=== PATIENT | male | born 1955 | race Caucasian/White ===

== ENCOUNTER 2017-04-13 16:16 | Emergency (ER) | payer BC ==
[2017-04-13 17:40] VITALS: BP 151/88
[2017-04-13] MEDS ORDERED: Bacitracin Oint 1 GM U/D Packet ONE (18:50)
--- NOTE | 2017-04-13 18:53 | EDM.PDOC ---
ED HPI GENERAL MEDICAL PROBLEM - General Chief Complaint: Laceration Stated Complaint: L THUMB LACERATION Time Seen by Provider: 04/13/17 17:59 Source of Information: Reports: Patient History Limitations: Reports: No Limitations - History of Present Illness INITIAL COMMENTS - FREE TEXT/NARRATIVE: History of present illness: [61-year-old male presenting with a injury to his left thumb. He got it in the miter saw when he was working on his deck. No other injuries of his tetanus is up-to-date.] Review of systems: As per history of present illness and below otherwise all systems reviewed and negative. Past medical history: As per history of present illness and as reviewed below otherwise noncontributory. Surgical history: As per history of present illness and as reviewed below otherwise noncontributory. Social history: No reported history of drug or alcohol abuse. Family history: As per history of present illness and as reviewed below otherwise noncontributory. Physical exam: HEENT: Atraumatic, normocephalic, Lungs: Clear to auscultation, Heart: S1S2, regular, Extremities: Examination shows that he has a soft type laceration that's about a centimeter long to the lateral edge of his left distal thumb. It approaches the nail itself but does not involve the nail. Neuro: Awake, alert, oriented. Exam nonfocal. Diagnostics: [X-rays of the thumb do reveal I think that he next the distal tuft] Therapeutics: [I don't believe suturing this would help anything and so we are going to just put him in a dressing with antibiotic ointment and nonstick gauze and tube dressing and have him leave it on for 2 weeks and less he developed some throbbing pain. This should give it a chance to heal up.] Impression: [Left thumb laceration] Plan: [[place] as I discussed follow-up in the clinic in a problems. He should be able to soak it off in a couple weeks and then just use ointment and Band-Aids.] Definitive disposition and diagnosis as appropriate pending reevaluation and review of above. Left 1-Thumb Pain Score (Numeric/FACES): 1 - Related Data Allergies Allergy/AdvReac Type Severity Reaction Status Date / Time kiwi Allergy Anaphylactic Verified 01/16/14 09:29 Shock Home Meds: Home Meds Aspirin [Adult Low Dose Aspirin EC] 81 mg PO DAILY 01/14/14 [History] Fluticasone Propionate [Flonase] 2 sprays MICHAEL DAILY 01/14/14 [History] Efiqcwnz-Cayqstu-Htxn 149-Hyal [Glucosamine Chondroitin Complx] 2 cap PO DAILY 01/14/14 [History] Rome-3 Fatty Acids [Rome-3] 1,000 mg PO DAILY 01/14/14 [History] Ranitidine [Zantac] 150 mg PO BID 01/14/14 [History] Vitamin B Complex 1 each PO DAILY 01/14/14 [History] Past Medical History HEENT History: Reports: Impaired Vision Cardiovascular History: Reports: High Cholesterol, Hypertension Respiratory History: Reports: Sleep Apnea Gastrointestinal History: Reports: GERD Endocrine/Metabolic History: Reports: Obesity/BMI 30+ - Past Surgical History HEENT Surgical History: Reports: [facility] Social & Family History - Tobacco Use Smoking Status *Q: Never Smoker Years of Tobacco use: 37 Second Hand Smoke Exposure: No - Caffeine Use Caffeine Use: Reports: Coffee - Alcohol Use Days Per Week of Alcohol Use: 3 Number of Drinks Per Day: 2 Total Drinks Per Week: 6 - Recreational Drug Use Recreational Drug Use: No ED ROS GENERAL - Review of Systems Review Of Systems: ROS reveals no pertinent complaints other than HPI. ED EXAM, SKIN/RASH Exam: See Below Course - Vital Signs Last Recorded V/S: Last Vital Signs Temp 36.3 C 04/13/17 18:00 Pulse 57 L 04/13/17 18:00 Resp 16 04/13/17 18:00 BP 151/88 H 04/13/17 18:00 Pulse Ox 98 04/13/17 18:00 - Orders/Labs/Meds Orders: Active Orders 24 hr Category Date Time Status Fingers Thumb Lt FA [CR] Stat Exams 04/13/17 18:20 Taken Departure - Departure Time of Disposition: 18:52 Disposition: Home, Self-Care 01 Condition: Good Clinical Impression: Thumb laceration Qualifiers: Encounter type: initial encounter Damage to nail status: without damage Foreign body presence: without foreign body Laterality: left Qualified Code(s): S61.012A - Laceration without foreign body of left thumb without damage to nail , initial encounter - Discharge Information Forms: ED Department Discharge Additional Instructions: As we discussed to consult this office in 2 weeks but remove it sooner if you develop throbbing pain. Either way soak it off and then if it still needs to heal more you can just use antibiotic ointment and Band-Aids and tablets healed. - My Orders Last 24 Hours: My Active Orders 04/13/17 18:20 Fingers Thumb Lt FA [CR] Stat - Assessment/Plan Last 24 Hours: My Active Orders 04/13/17 18:20 Fingers Thumb Lt FA [CR] Stat
[2017-04-13] MEDS ORDERED: Bacitracin Oint 1 GM U/D Packet TOP ONE (19:09)
--- NOTE | 2017-04-14 09:50 | CR ---
Fingers Thumb Lt FA HISTORY: Saw injury. COMPARISON: Left hand 04/19/2012. FINDINGS: No radiopaque foreign body seen. Soft tissue injury to the distal thumb. Subtle cortical i njury to the tuft of the thumb this was present on 2012 films compatible with old injury. No definit e acute injury is seen.
== END 2017-04-13 19:08 | disposition home or self-care (01) ==
LOC: JP.ED 16:16
DX: S61.012A Laceration without foreign body of left thumb without damage to nail, initial encounter (principal); I10 Essential (primary) hypertension; E66.9 Obesity, unspecified; Z91.018 Allergy to other foods; Z79.82 Long term (current) use of aspirin; Z79.899 Other long term (current) drug therapy; E78.00 Pure hypercholesterolemia, unspecified; Z98.890 Other specified postprocedural states; W29.8XXA Contact with other powered hand tools and household machinery, initial encounter
CPT/HCPCS: 73140-26-FA; 73140-FA; 99284